=== PATIENT | male | born 1990 | race Caucasian/White ===

== ENCOUNTER 2020-07-05 17:44 | Emergency (ER) | payer OTHER ==
[~2020-07-05] VITALS: Ht 177.8 cm; Wt 99.8 kg
[2020-07-05] MEDS ORDERED: BENZTROPINE MES1 MG PO (18:07)
[2020-07-05] MEDS ORDERED: CLONAZEPAM 0.50.5 M1 PO (18:07)
[2020-07-05] MEDS ORDERED: CLOZARIL25 MG PO (18:07)
[2020-07-05] MEDS ORDERED: TRAMADOL 50 MG50 MG PO (18:08)
[2020-07-05] MEDS ORDERED: LAMICTAL5 MG PO (18:08)
[2020-07-05] MEDS ORDERED: CLONIDINE HCL0.2 M2 PO (18:08)
[2020-07-05] MEDS ORDERED: PROCHAMBER1 EACH INH (18:08)
[2020-07-05] MEDS ORDERED: TIZANIDINE HCL2 M1 PO (18:08)
[2020-07-05] MEDS ORDERED: NEURONTIN100 MG PO (18:08)
[2020-07-05] MEDS ORDERED: AMITRIPTYLINE H10 M1 PO (18:08)
[2020-07-05] MEDS ORDERED: IBUPROFEN 800800 M1 PO ×2 (19:23→20:13)
[2020-07-05 20:16] VITALS: BP 120/70
== END 2020-07-05 20:17 | disposition home or self-care (01) ==
LOC: M.ERS 17:44
DX: M25.572 Pain in left ankle and joints of left foot (principal); M25.562 Pain in left knee; I10 Essential (primary) hypertension; J45.909 Unspecified asthma, uncomplicated; F31.9 Bipolar disorder, unspecified